=== PATIENT | male | born 1985 | race Caucasian/White ===

== ENCOUNTER → 2020-01-05 09:27 | Outpatient (CLI) | payer BC, SELFPAY ==
--- NOTE | ~2020-01-05 | MR_ITS ---
EXAMINATION: MR wrist LT w con DATE: 01/05/2020 11:14 INDICATION: 3-4 weeks of left wrist pain TECHNIQUE: Magnetic resonance imaging (MRI) of the left wrist was performed without intravenous contr ast. Sequences performed include axial, sagittal and coronal T1-weighted FS FSE and T2-weighted FS FS E and coronal 3-D FGRE. COMPARISON: None FINDINGS: Intrinsic ligaments: The scapholunate and lunotriquetral ligaments are normal. No evident contrast extends into the midcar pal joint to suggest tear. Triangular fibrocartilage complex (TFCC): There is a partial tear of the triangular fibrocartilage complex involving the ulnar styloid attachme nt. The foveal attachment is normal. No contrast extension into the distal radioulnar joint to sugges t a full-thickness perforation. The ulnar collateral and ulnar triquetral ligaments remain intact. Th e extensor carpi ulnaris tendon sheath is normal. Extensor wrist: Extensor tendons of the wrist are normal. No tenosynovitis. Flexor wrist: The flexor tendons of the wrist are normal. No abnormality in the carpal tunnel with normal median n erve. Guyon's canal: Guyon's canal including the ulnar nerve and artery are normal. Bones/other: Subarticular cystic change along the radial aspect of the lunate which appears to extend to the artic ulation with the proximal pole of the scaphoid. No evident contrast enhancement within the region of cystic change to suggest communication with the wrist joint. Couple small low signal intensity bone i slands at the distal radius. Normal marrow signal. No fracture, avascular necrosis or pathologic martell ow replacing process. Joint spaces are normal with no focal cartilage defects appreciated. IMPRESSION: 1. Partial tear at the ulnar styloid attachment of the triangular fibrocartilage complex. The radial and foveal attachments as well as the central fibrocartilaginous disc remain intact. Reviewed, dictated and finalized at location A. [employer] IMPRESSION: 1. Partial tear at the ulnar styloid attachment of the triangular fibrocartilag e complex. The radial and foveal attachments as well as the central fibrocartil aginous disc remain intact.
--- NOTE | ~2020-01-05 | XR_ITS ---
EXAMINATION: XR fl inj wrist LT for MR/CT DATE: 01/05/2020 10:41 INDICATION: Left wrist pain after fall. No prior surgery. TECHNIQUE: A time-out was performed to verify the patient's name, date of , and procedure to b e performed. The procedure including the risks, benefits, and alternatives was discussed with the pat ient. Risks discussed included bleeding and infection. The patient understood the risks and agreed to proceed. The skin overlying the left radioscaphoid joint was prepped and draped in usual sterile fas hion. Anesthetic was administered with 1% lidocaine subcutaneously. A 22 G needle was advanced unde r fluoroscopic guidance into the joint. Subsequently, injectate consisting of 2 mL of 1:200 Multihan ce, 1:4 1% lidocaine, and 1:4 Omnipaque 240 was instilled. The needle was removed and the entry site was cleaned and dressed. There were no immediate complications. Fluoroscopy exposure time was 0.1 m inutes. The total number of images was 2. FINDINGS: Real-time fluoroscopy demonstrates the needle and contrast in the left radioscaphoid joint. IMPRESSION: 1. Successful left radioscaphoid joint injection of contrast for subsequent MR arthrography. Reviewed, dictated and finalized at location A. [employer]
== END ==
PROVIDERS: Visit Provider Physician Assistant
DX: S63.592A Other specified sprain of left wrist, initial encounter (principal); X58.XXXA Exposure to other specified factors, initial encounter
CPT/HCPCS: 20605; 73222; 77002; A9577; Q9966